=== PATIENT | female | born 1945 | race Caucasian/White ===

== ENCOUNTER → 2016-09-17 | Outpatient (CLI) | payer MEDICARE, MEDICAID ==
[2016-09-17 11:32] LABS: ANION GAP 13 (5-19); BLOOD UREA NITROGEN 20 mg/dL (7-20); CALCIUM 10.2 mg/dL (8.4-10.2); CARBON DIOXIDE 22 mmol/L (22-30); CHLORIDE 106 mmol/L (98-107); CHOLESTEROL 214.38 mg/dL (0-200); CREATININE RESULT 0.86 mg/dL (0.52-1.25); Direct HDL 77 mg/dL (>40); GLUCOSE 84 mg/dL (75-110); POTASSIUM 4.7 mmol/L (3.6-5.0); SODIUM 141.3 mmol/L (137-145); TRIGLYCERIDES 158 mg/dL (<150)
[2016-09-17 11:43] LABS: DIRECT LDL 106 mg/dL (<100)
[2016-09-17 11:45] LABS: VLDL CHOLESTEROL 31.6 mg/dL (10-31)
== END ==
LOC: OD 09:29
PROVIDERS: ATTEND Internal Medicine Cardiovascular Disease
DX: R73.09 Other abnormal glucose (principal); I48.91 Unspecified atrial fibrillation; E74.9 Disorder of carbohydrate metabolism, unspecified; E78.5 Hyperlipidemia, unspecified
CPT/HCPCS: 36415; 80048; 80061; 83036

== ENCOUNTER → 2017-01-14 | Outpatient (CLI) | payer MEDICARE, MEDICAID ==
[2017-01-14 09:45] LABS: ANION GAP 12 (5-19); BLOOD UREA NITROGEN 14 mg/dL (7-20); CALCIUM 9.9 mg/dL (8.4-10.2); CARBON DIOXIDE 23 mmol/L (22-30); CHLORIDE 103 mmol/L (98-107); CHOLESTEROL 196.14 mg/dL (0-200); CREATININE RESULT 0.87 mg/dL (0.52-1.25); Direct HDL 68 mg/dL (>40); GLUCOSE 93 mg/dL (75-110); POTASSIUM 4.5 mmol/L (3.6-5.0); SODIUM 137.5 mmol/L (137-145); TRIGLYCERIDES 137 mg/dL (<150)
[2017-01-14 09:56] LABS: DIRECT LDL 85 mg/dL (<100)
== END ==
LOC: OD 07:56
PROVIDERS: ATTEND Internal Medicine Cardiovascular Disease
DX: I48.91 Unspecified atrial fibrillation (principal); I10 Essential (primary) hypertension; E78.5 Hyperlipidemia, unspecified; E74.9 Disorder of carbohydrate metabolism, unspecified
CPT/HCPCS: 36415; 80048; 80061

== ENCOUNTER → 2017-03-01 | Outpatient (CLI) | payer MEDICARE, MEDICAID ==
[2017-03-01 09:02] LABS: ANION GAP 10 (5-19); BLOOD UREA NITROGEN 25 mg/dL (7-20); CALCIUM 9.1 mg/dL (8.4-10.2); CARBON DIOXIDE 22 mmol/L (22-30); CHLORIDE 106 mmol/L (98-107); CHOLESTEROL 190.61 mg/dL (0-200); CREATININE RESULT 1.17 mg/dL (0.52-1.25); Direct HDL 64 mg/dL (>40); GLUCOSE 94 mg/dL (75-110); POTASSIUM 4.6 mmol/L (3.6-5.0); SODIUM 138.1 mmol/L (137-145); TRIGLYCERIDES 192 mg/dL (<150)
[2017-03-01 09:13] LABS: DIRECT LDL 90 mg/dL (<100)
[2017-03-01 09:18] LABS: VLDL CHOLESTEROL 38.4 mg/dL (10-31)
== END ==
LOC: OD 07:46
PROVIDERS: ATTEND Internal Medicine Cardiovascular Disease
DX: R73.09 Other abnormal glucose (principal); I10 Essential (primary) hypertension; I48.91 Unspecified atrial fibrillation; E78.5 Hyperlipidemia, unspecified; I42.8 Other cardiomyopathies; R94.31 Abnormal electrocardiogram [ECG] [EKG]
CPT/HCPCS: 36415; 80048; 80061; 83036

== ENCOUNTER 2017-03-20 08:22 | Inpatient (IN) | payer MEDICARE, MEDICAID ==
[2017-03-13 09:51] LABS: HEMATOCRIT 41.6 % (36.0-47.0); HGB HCT DIFFERENCE 0.4; MEAN CORPUSCULAR HEMOGLOBIN 31.1 pg (27.0-33.4); MEAN CORPUSCULAR HGB CONC 33.6 g/dL (32.0-36.0); MEAN CORPUSCULAR VOLUME 92 fl (80-97); RED CELL DISTRIBUTION WIDTH 13.5 % (11.5-14.0); WHITE BLOOD COUNT 6.8 10^3/uL (4.0-10.5)
[2017-03-13 10:23] LABS: ANION GAP 12 (5-19); BLOOD UREA NITROGEN 15 mg/dL (7-20); CALCIUM 9.7 mg/dL (8.4-10.2); CARBON DIOXIDE 25 mmol/L (22-30); CHLORIDE 105 mmol/L (98-107); CREATININE RESULT 0.87 mg/dL (0.52-1.25); GLUCOSE 89 mg/dL (75-110); POTASSIUM 4.1 mmol/L (3.6-5.0); SODIUM 142.4 mmol/L (137-145)
--- NOTE | 2017-03-13 10:51 | EKG REPORT ---
SEVERITY:- ABNORMAL ECG - ATRIAL FIBRILLATION LEFT ANTERIOR FASCICULAR BLOCK NONSPECIFIC REPOL ABNORMALITY, INFERIOR LEADS : Confirmed by: Nayana Purvis 13-Mar-2017 10:50:37
[~2017-03-20 08:22] MED LIST: CEFAZOLIN 1 GM/D5W RTU 1 GM/50 ML RTUPB IV PRN; LACTATED RINGERS 1000 ML IV PRN; LIDOCAINE 0.5% INJ-PF (5 MG/ML) 50 ML SDV SUBCUT PRN; LIDOCAINE 4% TRANSPARENT DRESSING 5 GM KIT TP PRN
[2017-03-20] MEDS ORDERED: ACETAMINOPHEN 100 ML IV ONE (10:31)
[2017-03-20] MEDS ORDERED: PROPOFOL INJ 200 MG/20 ML VIAL IV ONE (10:31)
[2017-03-20] MEDS ORDERED: DEXAMETHASONE SOD PHOSPHATE INJ 4 MG/1 ML VIAL ONE (10:31)
[2017-03-20] MEDS ORDERED: ONDANSETRON HCL INJ/PF 4 MG/2 ML SDV ONE (10:31)
[2017-03-20] MEDS ORDERED: FENTANYL CITRATE INJ/PF 100 MCG/2 ML AMPUL ONE (10:31)
[2017-03-20] MEDS ORDERED: MIDAZOLAM 2 MG/2 ML INJ ONE (10:31)
[2017-03-20] MEDS ORDERED: HYDROMORPHONE HCL INJ/PF 2 MG/ML AMPULE ONE (10:32)
--- NOTE | 2017-03-20 11:22 | RADIOLOGY REPORT (SQ) ---
EXAM DESCRIPTION: NM LYMPHATICS/LYMPH GLANDS COMPLETED DATE/TIME: 03/20/2017 10:55 am REASON FOR STUDY: MALIGNANT NEOPLASM OF RT FEMALE BREAST C50.911 MALIGNANT NEOPLASM OF UNSP SITE OF RIGHT FEMALE ELSIE COMPARISON: None. RADIONUCLIDE AND DOSE: 535 microcuries TC-99mtilmanocept - Lymphoseek. The route of agent administration: Subcutaneous in the skin. TECHNIQUE: The skin of the right breast was prepped in sterile fashion. The radiopharmaceutical was administered in equally divided doses in the periareolar breast. LIMITATIONS: None. FINDINGS: Images demonstrate activity at the injection site. IMPRESSION: ADMINISTRATION OF RADIOPHARMACEUTICAL FOR SENTINEL LYMPH NODE EVALUATION. TECHNICAL DOCUMENTATION: JOB ID: [id number] [employer]- All Rights Reserved
[2017-03-20 11:32] LABS: PARTIAL THROMBOPLASTIN TIME 29.3 SEC (23.5-35.8); PROTHROMBIN TIME 12.8 SEC (11.4-15.4)
[2017-03-20] MEDS ORDERED: LIDOCAINE 1%/EPINEPHRINE INJ 20 ML VIAL ONE (11:32)
[2017-03-20] MEDS ORDERED: METHYLENE BLUE 50 MG/10 ML AMPULE ONE (11:32)
[2017-03-20] MEDS ORDERED: MICROFIBRILLAR COLLAGEN 1 GM PACK ONE (11:32)
[2017-03-20] MEDS ORDERED: PROMETHAZINE HCL INJ 25 MG/1 ML VIAL IV PRN (16:31)
[2017-03-20] MEDS ORDERED: FENTANYL CITRATE INJ/PF 100 MCG/2 ML AMPUL IV PRN ×3 (16:31)
[2017-03-20] MEDS ORDERED: ONDANSETRON HCL INJ/PF 4 MG/2 ML SDV IV PRN ×2 (16:31→18:09)
[2017-03-20] MEDS ORDERED: DIPHENHYDRAMINE HCL 50 MG/ML VIAL IV PRN (16:31)
[2017-03-20] MEDS ORDERED: KETOROLAC TROMETHAMINE INJ/PF 30 MG/1 ML SDV IV PRN (18:09)
[2017-03-20] MEDS ORDERED: KETOROLAC TROMETHAMINE 10 MG TABLET PO PRN (18:09)
[2017-03-20] MEDS: FENTANYL CITRATE INJ/PF 100 MCG/2 ML AMPUL ONE ×4 (18:44→19:05)
--- NOTE | 2017-03-20 19:27 | OPERATIVE REPORT E ---
Operative Report NAME: MOE WU : 1945 AGE: 71Y DATE OF SURGERY: 03/20/2017 ROOM: OR PREOPERATIVE DIAGNOSIS: Multicentric right breast carcinoma. POSTOPERATIVE DIAGNOSIS: Multicentric right breast carcinoma. OPERATION: Right modified radical mastectomy with 2 drain placements. SURGEON: CHRIS HALE M.D. CERTIFIED OPHTHALMIC TECHNICIAN: PB Freeman. ANESTHESIA: TISSUE REMOVED OR ALTERED: General. COMPLICATIONS: None. ESTIMATED BLOOD LOSS: 75 mL. FINDINGS: See below. SUMMARY OF PROCEDURE: Patient was brought from the Ambulatory Surgery to the Radiology Suite where she underwent lymphoscintigraphy of the right breast. The activity registered in the nipple and the right breast tumors, which were in the 9 o' clock position of the right breast and the tail of rothman However, there was no uptake in the axilla. We delayed the case for another several hours and there was still no evidence of radioactivity in the right axilla based on bedside Neoprobe scanning. The patient, therefore, informed that she may very well need to undergo a complete axillary dissection as part of her oncologic management of her right breast multicentric carcinoma. She was operating room and general anesthesia was induced. Her right arm was abducted, right breast exposed. We did use a dual mapping technique and injected approximately 3 mL of methylene blue in the upper outer aspect of the right areola complex, full strength, with a 27-gauge needle in the subdermal space. The right breast was massaged and the right breast, neck and chest wall as well as axilla wall prepped and draped in a sterile fashion. Surgical plan and surgical timeout were conducted. Markings were made on the skin for a classic right mastectomy. Markings were made and incisions were made in an elliptical fashion with a #10 blade. Superior to inferior skin flaps were raised, superiorly to the subclavicular area and medially to the parasternal tissue and inferiorly down to the serratus anterior muscle. The breast was subsequently dissected off of the chest wall, all using electrocautery. There was no evidence of invasion into the pectoralis muscle. We set up the Bookwalter retractor, and now used Neoprobe again to scan the right axilla. Unfortunately, there were neither any blue dye uptake in the axilla nor any radioactivity. Therefore, the sentinel node mapping technique, dual agents, failed. We elevated the lateral skin off the subcutaneous tissue on the edge of the pectoralis laterally. We now took the breast off of the pectoralis minor edge laterally and the serratus anterior muscle along the chest wall. Laterally the tissue was taken down to the lateral of the latissimus dorsi. Superiorly we took the level of dissection right down to the bifurcating axillary vein. We took the fatty tissue up under the pectoralis minor muscle including some palpable lymph nodes, therefore, this being level 2 dissection. All fatty tissue was swept off of the neurovascular bundle including the long thoracic nerve as well as dorsal nerve. The intercostal brachial nerve was identified and sacrificed by clipping approximately distally, dividing it and leaving the intervening section in the axillary contents. All of the axillary fat tissue was removed along with the associated lymph nodes and elevated and removed and sent to pathology in a single bucket labeled "right axilla" and "axillary contents." Two large Duncan drains were placed in the recesses of the inferior skin flap. Of note, both the long thoracic nerve and the thoracodorsal nerve were pinched and their respective muscles twitched throughout the operation. Hemostasis was felt to be satisfactory. Skin edges to the large mastectomy incision were trimmed and the wound closed in layers with 2-0 Vicryl and Dermabond glue. Drains hooked to bulb suction. Sponge and needle counts were correct. There were no frozen section specimens performed and there were no sentinel nodes sent for the above reasons. Dqauan Freeman assisted with tissue retraction and first assisting. Patient tolerated the procedure well, extubated, and taken to the recovery room in stable condition. DICTATING PHYSICIAN: CHRIS HALE M.D. [id number] PHY#: [id number] ID: [id number] JOB#: [id number] ACCT: [id number] cc:CHRIS HALE M.D. > OCHOA
[2017-03-21 09:14] VITALS: BP 125/70
[2017-03-21] MEDS ORDERED: DOCUSATE SODIUM 100 MG CAPSULE PO SCH (10:00)
--- NOTE | 2017-03-21 12:07 | DISCHARGE SUMMARY E ---
Discharge Summary NAME: MOE WU : 1945 AGE: 71Y ADMITTED: 03/20/2017 DISCHARGED: 03/21/2017 REASON FOR ADMISSION: Right breast cancer. SUMMARY OF HOSPITALIZATION: The patient is a 71-year-old white female with history of multicentric right breast carcinoma who is brought to the hospital for definitive measurement through same day surgery. Please see her past medical and surgical history for complete documentation. The patient was taken from ambulatory surgery to the radiology suite where she underwent lymphoscintigraphy of the right breast and axilla. Unfortunately, the patient had only uptake of radionuclide into the right breast tumors and not the right axilla. We delayed her surgery by several hours so as to give the radionuclide a chance to migrate and this was to no avail. Therefore, the patient was subsequently taken to the operating room by Dr. Ferrell where she underwent right modified radical mastectomy. She had 2 drains placed. She tolerated the operation well. She was taken to the recovery area and then the floor, where she had an uneventful night. The day following her operative procedure, she was getting about well and was taught drain care. Her pain was managed. She was voiding without difficulty. FINAL DIAGNOSIS: MULTICENTRIC RIGHT BREAST CARCINOMA, STATUS POST RIGHT MODIFIED RADICAL MASTECTOMY WITH DRAIN PLACEMENT. DISPOSITION: Patient discharged to home under the care of family. Followup with Dr. Ferrell in approximately 1 to 2 weeks, take Toradol p.r.n. pain (for which a prescription has been provided), and shower. She may drive when she feels comfortable. DICTATING PHYSICIAN: CHRIS FERRELL M.D. [id number] PHY#: [id number] ID: [id number] JOB#: [id number] ACCT: [id number] cc:CHRIS FERRELL M.D. >
== END 2017-03-21 10:08 | disposition home or self-care (01) | DRG 580 ==
LOC: INOR 08:22 → EDSTATUS 12:00 → 5 20:04
PROVIDERS: ADMIT Surgery; ATTEND Surgery
PROC: 0HTT0ZZ Resection of Right Breast, Open Approach (ICD-10-PCS; 2017-03-20)
PROC: C71 Nuclear Medicine, Lymphatic and Hematologic System, Planar Nuclear Medicine Imaging (ICD-10-PCS; 2017-03-20)
PROC: 07B50ZX Excision of Right Axillary Lymphatic, Open Approach, Diagnostic (ICD-10-PCS; principal; 2017-03-20 12:00)
DX: C50.511 Malignant neoplasm of lower-outer quadrant of right female breast (principal); C77.3 Secondary and unspecified malignant neoplasm of axilla and upper limb lymph nodes; C50.411 Malignant neoplasm of upper-outer quadrant of right female breast; K21.9 Gastro-esophageal reflux disease without esophagitis; J45.909 Unspecified asthma, uncomplicated; I48.91 Unspecified atrial fibrillation; Z17.0 Estrogen receptor positive status [ER+]; Z88.6 Allergy status to analgesic agent; Z88.3 Allergy status to other anti-infective agents; Z88.0 Allergy status to penicillin; Z88.8 Allergy status to other drugs, medicaments and biological substances; Z90.710 Acquired absence of both cervix and uterus
CPT/HCPCS: 36415; 400; 78195; 80048; 84132; 85027; 85610; 85730; 88309; 93005; 93010; 94799; A9520; J0131; J0690; J1100; J1170; J1885; J2250; J2405; J2704; J3010; J3490; Q9968

== ENCOUNTER 2017-04-24 06:51 | Day surgery (SDC) | payer MEDICARE, MEDICAID ==
[~2017-04-24 06:51] MED LIST changes: +ACETAMINOPHEN 325 MG TABLET PO PRN; -CEFAZOLIN 1 GM/D5W RTU 1 GM/50 ML RTUPB IV PRN; +CIPROFLOXACIN 400 MG/D5W RTU 400 MG/200 ML RTUPB IV PRN; -LACTATED RINGERS 1000 ML IV PRN; -LIDOCAINE 0.5% INJ-PF (5 MG/ML) 50 ML SDV SUBCUT PRN; -LIDOCAINE 4% TRANSPARENT DRESSING 5 GM KIT TP PRN; +RINGERS SOLUTION,LACTATED 1,000 ML IV PRN
[2017-04-24] MEDS ORDERED: LIDOCAINE 1%/EPINEPHRINE INJ 20 ML VIAL ONE (07:32)
[2017-04-24 07:54] LABS: HEMATOCRIT 37.7 % (36.0-47.0); HEMOGLOBIN 12.7 g/dL (12.0-15.5); HGB HCT DIFFERENCE 0.4; MEAN CORPUSCULAR HEMOGLOBIN 30.6 pg (27.0-33.4); MEAN CORPUSCULAR HGB CONC 33.7 g/dL (32.0-36.0); MEAN CORPUSCULAR VOLUME 91 fl (80-97); RED BLOOD COUNT 4.15 10^6/uL (3.72-5.28); RED CELL DISTRIBUTION WIDTH 13.1 % (11.5-14.0); WHITE BLOOD COUNT 7.6 10^3/uL (4.0-10.5)
[2017-04-24] MEDS ORDERED: MIDAZOLAM 2 MG/2 ML INJ ONE (08:33)
[2017-04-24] MEDS ORDERED: EPHEDRINE SULFATE INJ 50 MG/1 ML AMPULE ONE (08:33)
[2017-04-24] MEDS ORDERED: FENTANYL CITRATE INJ/PF 100 MCG/2 ML AMPUL ONE (08:33)
[2017-04-24] MEDS ORDERED: KETAMINE HCL INJ 500 MG/10 ML VIAL ONE (08:33)
[2017-04-24] MEDS ORDERED: ACETAMINOPHEN 100 ML IV ONE (08:34)
[2017-04-24] MEDS ORDERED: PROPOFOL INJ 200 MG/20 ML VIAL IV ONE (08:34)
[2017-04-24] MEDS ORDERED: DIPHENHYDRAMINE HCL 50 MG/ML VIAL IV PRN (09:12)
[2017-04-24] MEDS ORDERED: MEPERIDINE HCL/PF INJ 25 MG/1 ML DISP.SYRIN IV PRN (09:12)
[2017-04-24] MEDS ORDERED: PROMETHAZINE HCL INJ 25 MG/1 ML VIAL IV PRN ×2 (09:12)
[2017-04-24] MEDS ORDERED: MORPHINE SULFATE 10 MG/ML INJ IV PRN (09:12)
[2017-04-24] MEDS ORDERED: FENTANYL CITRATE INJ/PF 100 MCG/2 ML AMPUL IV PRN ×3 (09:12)
[2017-04-24] MEDS ORDERED: ONDANSETRON HCL INJ/PF 4 MG/2 ML SDV IV PRN (09:12)
--- NOTE | 2017-04-24 09:29 | Operative Report ---
Operative Report DATE OF SURGERY: 04/24/17 PREOPERATIVE DIAGNOSIS: Stage III breast carcinoma POSTOPERATIVE DIAGNOSIS: Same OPERATION: 1. Focused ultrasound of the left neck. 2. Ultrasound directed insertion of left subclavian single-chamber Rnkdgt-a-Idur catheter. 3. Interpretation of intraoperative fluoroscopy SURGEON: CHRIS HALE 1ST GRANULIZING MACHINE OPERATOR: GABRIELA BURRIS ANESTHESIA: LMAC TISSUE REMOVED OR ALTERED: None COMPLICATIONS: None ESTIMATED BLOOD LOSS: Scant INTRAOPERATIVE FINDINGS: See below PROCEDURE: Patient was seen in the preop holding area where the left neck was marked. She was then taken to the operating room where LMAC anesthesia was induced. Left arm was tucked at her side, neck extended and rotated to the right. Left neck chest wall prepped and draped sterile fashion Surgical plan surgical timeout conducted The neck was scanned with a variable frequency linear transducer. Findings were significant for a patent, compressible left internal jugular vein felt suitable for cannulation. Skin was anesthetized with 1% lidocaine plain. Using the micro needle and wire , the left IJ was cannulated. A suitable site for placement of the port was chosen in the left subclavian position. Skin was anesthetized 1% lidocaine. A 2 cm incision was made with the skin knife, port pocket developed large enough to accommodate a single- chamber port. The catheter was then turned to the appropriate length approximately 22 cm, tunneled between the 2 wounds, attached to the port with the plastic ring and the port tucked into the pocket. The microwire was then switched over to a conventional 0.030 guidewire under fluoroscopic guidance. The dilator introducer sheath was then threaded over the guidewire, wire and dilator removed, and catheter threaded into the sheath sheath stripped away, leaving catheter in good position. There is no kinking of the catheter, the tip of the catheter in the superior vena cava. No evidence of ectopy. Catheter was aspirated and flushed satisfactorily with heparinized saline. Wounds closed with 3-0 Vicryl benzoin and Steri-Strips. Patient tolerated the procedure well, taken to the recovery room in stable condition. Portable upright chest x-ray pending at time of dictation. The physician commercial assistant, Ms. Freeman, provided assistance during this case by: Assisting with retracting tissue, instillation of local anesthesia and closure of skin incisions.
--- NOTE | 2017-04-24 09:35 | PDOC DISCHARGE SUMMARY ---
Discharge Summary (SDC) - Discharge Final Diagnosis: Right breast cancer Date of Surgery: 04/24/17 Discharge Date: 04/24/17 Condition: Stable Treatment or Instructions: You may shower in 48 hours. Leave steri strips (paper bandaids) intact until follow-up. Warm water/soap may wash over the area. Do not scrub. Pat dry. Call clinic with any questions or concerns. Call if there is swelling, redness, drainage, difficulty breathing, or fever. Follow up at [facility] with Kim Walker PA-C in 10-14 days. [facility]- [phone] Referrals: BRIGETTE WHEELER MD [Primary Care Provider] - Discharge Diet: As Tolerated Discharge Activity: Activity As Tolerated Report the Following to Your Physician Immediately: Shortness of Breath, Fever over 101 Degrees, Swelling, Warmth, Drainage-Foul Smelling
[2017-04-24] MEDS ORDERED: KETOROLAC TROMETHAMINE 10 MG TABLET PO PRN (09:38)
[2017-04-24] MEDS ORDERED: LIDOCAINE 2% INJ-PF (20 MG/ML) 10 ML AMPUL ONE (10:24)
--- NOTE | 2017-04-24 11:41 | RADIOLOGY REPORT (SQ) ---
EXAM DESCRIPTION: CHEST SINGLE VIEW COMPLETED DATE/TIME: 04/24/2017 10:11 am REASON FOR STUDY: PORT PLACEMENT COMPARISON: Chest film 08/14/2015, 08/08/2015 EXAM PARAMETERS: NUMBER OF VIEWS: One view. TECHNIQUE: Single frontal radiographic view of the chest acquired. RADIATION DOSE: NA LIMITATIONS: None. FINDINGS: LUNGS AND PLEURA: No opacities, masses or pneumothorax. No pleural effusion. MEDIASTINUM AND HILAR STRUCTURES: No masses. Contour normal. HEART AND VASCULAR STRUCTURES: Marked cardiomegaly. Normal vasculature. BONES: No acute findings. HARDWARE: Left-sided permanent central line tip superior vena cava. OTHER: Surgical clips right axilla, post right mastectomy IMPRESSION: Stable cardiomegaly Prior right mastectomy Left-sided permanent central line tip in the superior vena cava, no pneumothorax. TECHNICAL DOCUMENTATION: JOB ID: [id number]
[2017-04-24 11:57] VITALS: BP 164/88
--- NOTE | 2017-04-24 11:57 | RADIOLOGY REPORT (SQ) ---
EXAM DESCRIPTION: FLUORO/CV PLACEMENT COMPLETED DATE/TIME: 04/24/2017 10:15 am REASON FOR STUDY: PORTACATH PLACEMENT LEFT SIDE ASSISTED W/ FLUORO IN OR C50.911 MALIGNANT NEOPLASM OF UNSP SITE OF RIGHT FEMALE ELSIE COMPARISON: Chest films 08/14/2015 FLUOROSCOPY TIME: 0.1 minutes 3 digital C-arm images saved to PACS. TECHNIQUE: Intra-operative images acquired during surgical procedure to evaluate progress. NUMBER OF IMAGES: Cine fluoroscopic images. LIMITATIONS: None. FINDINGS: Intra procedural imaging and fluoro during left-sided permanent central line placement. IMPRESSION: Intra procedural imaging and fluoro COMMENT: Quality ID 145: Final reports for procedures using fluoroscopy that document radiation exp osure indices, or exposure time and number of fluorographic images (if radiation exposure indices are not available) Please consult full operative report of the attending physician for description of the procedure. TECHNICAL DOCUMENTATION: JOB ID: [id number] [employer]- All Rights Reserved
== END 2017-04-24 11:15 | disposition home or self-care (01) ==
LOC: OROUT 06:51
PROVIDERS: ATTEND Surgery
PROC: 05H633Z Insertion of Infusion Device into Left Subclavian Vein, Percutaneous Approach (ICD-10-PCS; principal; 2017-04-24 09:00)
DX: C50.911 Malignant neoplasm of unspecified site of right female breast (principal); M19.90 Unspecified osteoarthritis, unspecified site; I48.91 Unspecified atrial fibrillation; J45.909 Unspecified asthma, uncomplicated; I10 Essential (primary) hypertension; K21.9 Gastro-esophageal reflux disease without esophagitis; Z88.5 Allergy status to narcotic agent; Z88.2 Allergy status to sulfonamides; Z88.0 Allergy status to penicillin; Z88.1 Allergy status to other antibiotic agents; Z79.899 Other long term (current) drug therapy; Z79.01 Long term (current) use of anticoagulants; Z79.51 Long term (current) use of inhaled steroids
CPT/HCPCS: 36561; 36415; 85027; 71010; 77001; C1752; C1788; J2250; J3010; J3490 ×3; J2704; J0744; J1642; J0131; 532

== ENCOUNTER → 2017-04-26 | Outpatient (CLI) | payer MEDICARE, MEDICAID ==
--- NOTE | 2017-04-26 12:51 | RADIOLOGY REPORT (SQ) ---
EXAM DESCRIPTION: NM MUGA REST COMPLETED DATE/TIME: 04/26/2017 12:16 pm REASON FOR STUDY: ENC FOR SCREENING FOR CARDIOVASCULAR DISORDERS (Z13.6) Z13.6 ENCOUNTER FOR SCREEN ING FOR CARDIOVASCULAR DISORDERS Z08 ENCNTR FOR FOLLOW-UP EXAM AFTER TRTMT FOR MALIGNANT NEOP C50.41 1 MALIG NEOPLM OF UPPER-OUTER QUADRANT OF RIGHT FEMALE COMPARISON: AP chest 04/24/2017 RADIONUCLIDE AND DOSE: 23.9 mCi technetium 99 M pyrophosphate The route of agent administration: Intravenous TECHNIQUE: Following administration of the radionuclide, gated images of the heart are obtained in t hree projections. Left ventricular functional analysis performed. LIMITATIONS: None. FINDINGS: LEFT VENTRICULAR FUNCTION: EJECTION FRACTION: 47%. END-DIASTOLIC VOLUME: 302 mL. END-SYSTOLIC VOLUME: 151 mL. WALL MOTION: Diffuse depressed wall motion OTHER: No other significant finding. IMPRESSION: Dilated left ventricle with diffuse depressed wall motion. Left ventricular ejection fraction 47% TECHNICAL DOCUMENTATION: JOB ID: [id number] [employer]- All Rights Reserved
== END ==
LOC: RAD 10:30
PROVIDERS: ATTEND Internal Medicine
DX: Z51.11 Encounter for antineoplastic chemotherapy (principal); C50.411 Malignant neoplasm of upper-outer quadrant of right female breast
CPT/HCPCS: 78472; A9560; Q9969

== ENCOUNTER → 2017-04-29 | Outpatient (CLI) | payer MEDICARE, MEDICAID ==
--- NOTE | 2017-04-30 08:37 | RADIOLOGY REPORT (SQ) ---
EXAM DESCRIPTION: NM WHOLE BODY BONE SCAN COMPLETED DATE/TIME: 04/29/2017 12:51 pm REASON FOR STUDY: MAL JOSEPH OF UPPER OUTER QUADRANT OF R FEMALE BREAST C50.411 MALIG NEOPLM OF UPPER- OUTER QUADRANT OF RIGHT FEMALE COMPARISON: No available imaging studies for comparison. RADIONUCLIDE AND DOSE: 21.8 millicuries Tc99m MDP. The route of agent administration: Intravenous. ADDITIONAL DRUGS AND DOSES: None. TECHNIQUE: Routine delayed images at 3 hour post radionuclide injection acquired of the bony skeleto n including anterior and posterior whole-body projections and additional focused images as needed. LIMITATIONS: None. FINDINGS: BONES: Several focal areas of activity in the spine with S-shaped curvature. Focal activi ty in the right and left shoulders and ankles. No other areas of abnormal bony activity. KIDNEYS: Symmetric excretion without obstruction. OTHER: No other significant finding. IMPRESSION: AREAS OF ACTIVITY IN THE SPINE AND EXTREMITIES CONSISTENT WITH DEGENERATIVE CHANGE. NO FINDINGS CONCERNING FOR BONY METASTASES. COMMENT: Quality measure 147: No available prior imaging studies for comparison TECHNICAL DOCUMENTATION: JOB ID: [id number] All Rights Reserved
== END ==
LOC: RAD 09:11
PROVIDERS: ATTEND Internal Medicine
DX: C50.411 Malignant neoplasm of upper-outer quadrant of right female breast (principal)
CPT/HCPCS: 78306; A9561; Q9969

== ENCOUNTER → 2017-04-30 | Outpatient (CLI) | payer MEDICARE, MEDICAID ==
--- NOTE | 2017-04-30 11:04 | RADIOLOGY REPORT (SQ) ---
EXAM DESCRIPTION: CT ABD/PELVIS WITH IV ONLY COMPLETED DATE/TIME: 04/30/2017 10:46 am REASON FOR STUDY: BREAST CA C50.411 MALIG NEOPLM OF UPPER-OUTER QUADRANT OF RIGHT FEMALE COMPARISON: None. TECHNIQUE: CT scan of the abdomen and pelvis performed using helical scanning technique with dynamic intravenous contrast injection. No oral contrast. Images reviewed with lung, soft tissue, and bone windows. Reconstructed coronal and sagittal MPR images reviewed. Delayed images for evaluation of the urinary system also acquired. All images stored on PACS. All CT scanners at this facility use dose modulation, iterative reconstruction, and/or weight based d osing when appropriate to reduce radiation dose to as low as reasonably achievable (ALARA). [facility]: Dose Right [facility]: CareDose [facility]: Dose Right [facility]: Teradose 4D [facility]: [employer] CONTRAST TYPE AND DOSE: contrast/concentration: Isovue 370.00 mg/ml; Total Contrast Delivered: 100.0 ml; Total Saline Delivered: 72.0 ml RENAL FUNCTION: Creatinine 1.1. RADIATION DOSE: Up-to-date CT equipment and radiation dose reduction techniques were employed. CTDIv ol: 8.2 - 21.6 mGy. DLP: 2549 mGy-cm.. LIMITATIONS: None. FINDINGS: LOWER CHEST: No significant findings. No nodules or infiltrates. LIVER: Normal size. Diffuse fatty infiltration. No masses. No dilated ducts. SPLEEN: Normal size. No focal lesions. PANCREAS: No masses. No significant calcifications. No adjacent inflammation or peripancreatic fluid collections. Pancreatic duct not dilated. GALLBLADDER: Surgically absent. ADRENAL GLANDS: No significant masses or asymmetry. RIGHT KIDNEY AND URETER: No solid masses. No significant calcifications. No hydronephrosis or hyd roureter. LEFT KIDNEY AND URETER: No solid masses. No significant calcifications. No hydronephrosis or hydr oureter. AORTA AND VESSELS: No aneurysm. No dissection. Renal arteries, SMA, celiac without stenosis. RETROPERITONEUM: No retroperitoneal adenopathy, hemorrhage or masses. BOWEL AND PERITONEAL CAVITY: No masses or inflammatory changes. No free fluid or peritoneal masses. APPENDIX: Not visualized. PELVIS: No mass. No free fluid. Normal bladder. ABDOMINAL WALL: No masses. No hernias. BONES: No significant or acute findings. Degenerative changes in the spine. OTHER: No other significant finding. IMPRESSION: NO SIGNIFICANT OR ACUTE FINDING IN THE ABDOMEN OR PELVIS ON CT SCAN WITH IV CONTRAST. TECHNICAL DOCUMENTATION: JOB ID: [id number] Quality ID # [id number]: Final reports with documentation of one or more dose reduction techniques (e.g., Au tomated exposure control, adjustment of the mA and/or kV according to patient size, use of iterative reconstruction technique) 2010 [employer]- All Rights Reserved
--- NOTE | 2017-04-30 11:26 | RADIOLOGY REPORT (SQ) ---
EXAM DESCRIPTION: CT CHEST WITH COMPLETED DATE/TIME: 04/30/2017 10:46 am REASON FOR STUDY: BREAST CA C50.411 MALIG NEOPLM OF UPPER-OUTER QUADRANT OF RIGHT FEMALE COMPARISON: None. TECHNIQUE: CT scan of the chest performed using helical scanning technique with dynamic intravenous contrast injection. Images reviewed with lung, soft tissue and bone windows. Reconstructed coronal and sagittal MPR images reviewed. All images stored on PACS. All CT scanners at this facility use dose modulation, iterative reconstruction, and/or weight based d osing when appropriate to reduce radiation dose to as low as reasonably achievable (ALARA). [facility]: Dose Right [facility]: CareDose [facility]: Dose Right [facility]: Teradose 4D [facility]: [employer] CONTRAST TYPE AND DOSE: 100 mL Isovue 370- low osmolar. RENAL FUNCTION: Creatinine 1.1. RADIATION DOSE: . LIMITATIONS: None. FINDINGS: LUNGS AND PLEURA: No opacities, nodules, masses. No pneumothorax. No effusions. HILAR AND MEDIASTINAL STRUCTURES: No identified masses or abnormal nodes. HEART AND VASCULAR STRUCTURES: No aneurysm or dissection. No central pulmonary emboli. No pericardi al effusion. HARDWARE: Vascular access port. UPPER ABDOMEN: No significant findings. Limited exam. THYROID AND OTHER SOFT TISSUES: No masses. No adenopathy. BONES: No significant finding. OTHER: Right mastectomy. Irregular soft tissue in the right axilla with multiple surgical clips. IMPRESSION: RIGHT MASTECTOMY WITH SURGICAL CLIPS AND IRREGULAR SOFT TISSUE IN THE RIGHT AXILLA. OTH ERWISE UNREMARKABLE CT OF THE CHEST WITH IV CONTRAST. TECHNICAL DOCUMENTATION: JOB ID: [id number] Quality ID # [id number]: Final reports with documentation of one or more dose reduction techniques (e.g., Au tomated exposure control, adjustment of the mA and/or kV according to patient size, use of iterative reconstruction technique) 2010 [employer]- All Rights Reserved
== END ==
LOC: RAD 09:57
PROVIDERS: ATTEND Internal Medicine
DX: C50.411 Malignant neoplasm of upper-outer quadrant of right female breast (principal)
CPT/HCPCS: 71260; 74177; 82565

== ENCOUNTER → 2017-06-13 | Outpatient (CLI) | payer MEDICARE, MEDICAID ==
[2017-06-13 10:43] LABS: ANION GAP 12 (5-19); BLOOD UREA NITROGEN 17 mg/dL (7-20); CALCIUM 9.4 mg/dL (8.4-10.2); CARBON DIOXIDE 23 mmol/L (22-30); CHLORIDE 103 mmol/L (98-107); CHOLESTEROL 199.47 mg/dL (0-200); CREATININE RESULT 0.84 mg/dL (0.52-1.25); Direct HDL 71 mg/dL (>40); GLUCOSE 94 mg/dL (75-110); POTASSIUM 4.5 mmol/L (3.6-5.0); SODIUM 138.3 mmol/L (137-145); TRIGLYCERIDES 161 mg/dL (<150)
[2017-06-13 10:54] LABS: DIRECT LDL 101 mg/dL (<100)
[2017-06-13 10:55] LABS: VLDL CHOLESTEROL 32.2 mg/dL (10-31)
== END ==
LOC: OD 09:38
PROVIDERS: ATTEND Internal Medicine Cardiovascular Disease
DX: Z01.810 Encounter for preprocedural cardiovascular examination (principal); I48.91 Unspecified atrial fibrillation; E78.5 Hyperlipidemia, unspecified; I10 Essential (primary) hypertension; R94.31 Abnormal electrocardiogram [ECG] [EKG]
CPT/HCPCS: 36415; 80048; 80061

== ENCOUNTER → 2017-11-13 | Outpatient (CLI) | payer MEDICARE, MEDICAID ==
--- NOTE | 2017-11-13 11:56 | WOMENS IMAGING REPORT ---
EXAM DESCRIPTION: BONE DENSITY HIP/SPINE COMPLETED DATE/TIME: 11/13/2017 10:35 am REASON FOR STUDY: OSTEOPOROSIS M81.0 AGE-RELATED OSTEOPOROSIS W/O CURRENT PATHOLOGICAL FRAC COMPARISON: 2013 TECHNIQUE: Dual-Energy X-ray Absorptiometry (DEXA) of the AP Spine and Hip. LIMITATIONS: None. FINDINGS: LUMBAR SPINE: The bone mineral density (BMD) measured from L1-L4 in the AP projection correlates with a T-score of +2.7, which is normal as defined by the World Health Organization. This is similar compared to 2014. HIP: The bone mineral density (BMD) measured in the left total hip correlates with a T-score of +1.6, whic h is normal as defined by the World Health Organization. This is similar compared to 2013 IMPRESSION: 1. LUMBAR SPINE: Normal 2. HIP: Normal COMMENT: The World Health Organization defines low BMD as follows: T-score: Normal: Greater than -1.0 Osteopenia: Between -1.0 and -2.5 Osteoporosis: Less than -2.5 without fractures Established osteoporosis: Less than -2.5 with fractures In general, you may wish to consider: Diagnosis Treatment Follow-up DEXA Normal BMD Prevention 2-3 years Osteopenia Prevention/Therapy 1-2 years Osteoporosis Therapy Yearly TECHNICAL DOCUMENTATION: JOB ID: [id number] [employer]- All Rights Reserved Reading location - IP/workstation name: [email or web address]
== END ==
LOC: WI 10:07
PROVIDERS: ATTEND Internal Medicine
DX: M81.0 Age-related osteoporosis without current pathological fracture (principal)
CPT/HCPCS: 77080

== ENCOUNTER → 2017-12-19 | Outpatient (CLI) | payer MEDICARE, MEDICAID ==
--- NOTE | 2017-12-19 12:36 | XCELERA REPORT ---
[address] [address] Lower Extremity Venous Evaluation Name: MOE WU Age: 72 yrs Gender: Female : 1945 Patient Status: Outpatient Patient Location: Study Date: 12/19/2017 11:26 AM Procedure: Color flow and duplex imaging of the veins of the left lower extremity as well as the right Common Femoral vein. Reason For Study: LLE PAIN/SWELLING Ordering Physician: USAMA MELGAR Performed By: Eloy Diana Right Sided Venous Evaluation The right common femoral vein is fully compressible. Spontaneous and phasic flow is present in the right common femoral vein. Left Sided Venous Evaluation Normal vessel filling wall to wall, compression and augmentation as well as Colour flow down to the infrageniculate veins. Interpretation Summary No duplex evidence of DVT or obstruction in the left lower extremity nor in the right Common Femoral vein. : USAMA MELGAR > Rudy Qureshi
== END ==
LOC: SP 11:10
PROVIDERS: ATTEND Internal Medicine
DX: M79.605 Pain in left leg (principal); M79.89 Other specified soft tissue disorders
CPT/HCPCS: 93971

== ENCOUNTER → 2018-01-10 | Outpatient (CLI) | payer MEDICARE, MEDICAID ==
--- NOTE | 2018-01-10 11:45 | RADIOLOGY REPORT (SQ) ---
EXAM DESCRIPTION: FOOT RIGHT COMPLETE COMPLETED DATE/TIME: 01/10/2018 11:21 am REASON FOR STUDY: PAIN IN RIGHT FOOT M79.671 PAIN IN RIGHT FOOT R22.41 LOCALIZED SWELLING, MASS AN D LUMP, RIGHT LOWER LIMB COMPARISON: None. NUMBER OF VIEWS: Three views. TECHNIQUE: AP, lateral and oblique radiographic images acquired of the right foot. LIMITATIONS: None. FINDINGS: MINERALIZATION: Normal. BONES: No acute fracture or dislocation. Apparent osteotomy changes involving the head of the 5th pr oximal phalanx. Dorsal and plantar calcaneal spurs. JOINTS: No effusions. SOFT TISSUES: No soft tissue swelling. No foreign body. OTHER: No other significant finding. IMPRESSION: Calcaneal spurs. No acute osseous abnormality. TECHNICAL DOCUMENTATION: JOB ID: [id number]- All Rights Reserved Reading location - IP/workstation name: [email or web address]
== END ==
LOC: RAD 11:02
PROVIDERS: ATTEND Physician Assistant Medical
DX: M79.671 Pain in right foot (principal); R22.41 Localized swelling, mass and lump, right lower limb; M77.31 Calcaneal spur, right foot

== ENCOUNTER → 2020-01-29 | Outpatient (CLI) | payer MEDICARE, MEDICAID ==
--- NOTE | 2020-01-29 14:29 | WOMENS IMAGING REPORT ---
EXAM DESCRIPTION: BONE DENSITY HIP/SPINE IMAGES COMPLETED DATE/TIME: 01/29/2020 2:08 pm REASON FOR STUDY: M81.0 AGE-RELATED OSTEOPOROSIS WITHOUT CURRENT PATHOLOGICAL FRACTURE M81.0 AGE-RE LATED OSTEOPOROSIS W/O CURRENT PATHOLOGICAL FRAC COMPARISON: 11/13/2017 TECHNIQUE: Dual-Energy X-ray Absorptiometry (DEXA) of the AP Spine and Hip. LIMITATIONS: None. FINDINGS: LUMBAR SPINE: The bone mineral density (BMD) measured from L1-L4 in the AP projection correlates with a T-score of 1.9, which is normal as defined by the World Health Organization. BMD Change vs Baseline: -5% HIP: The bone mineral density (BMD) measured in the left hip correlates with a T-score of 0.06, which is n ormal as defined by the World Health Organization. BMD Change vs Baseline: N/A 10 year Fracture Risk Assessment: Major Osteoporotic Fracture: Not available. Hip Fracture: Not available. IMPRESSION: 1. LUMBAR SPINE WHO CLASSIFICATION: NORMAL. 2. HIP WHO CLASSIFICATION: NORMAL. OVERALL ASSESSMENT: WHO CLASSIFICATION: NORMAL. COMMENT: The World Health Organization defines low BMD as follows: T-score: Normal: At or above -1.0 Osteopenia: Between -1.0 and -2.5 Osteoporosis: At or below -2.5 without fractures Established osteoporosis: At or below -2.5 with fractures In general, you may wish to consider: Diagnosis Treatment Follow-up DEXA Normal BMD Prevention 2-3 years Osteopenia Prevention/Therapy 1-2 years Osteoporosis Therapy Yearly TECHNICAL DOCUMENTATION: JOB ID: [id number] 2010 [employer]- All Rights Reserved Reading location - IP/workstation name: [email or web address]
== END ==
LOC: WI 13:25
PROVIDERS: ATTEND Internal Medicine
DX: M81.0 Age-related osteoporosis without current pathological fracture (principal)
CPT/HCPCS: 77080